=== PATIENT | female | born 2000 | race Two or more races ===

== ENCOUNTER 2024-10-04 18:21 | Emergency (ER) | payer SELFPAY ==
[2024-10-04 18:36] VITALS: BP 117/84; PULSE 117; RESP 18; TEMP 37.6; O2SAT 97
--- NOTE | 2024-10-04 18:38 | XR_ITS ---
Examination: PA lateral chest 2 views Technique: Upright PA lateral chest 2 views Exam date and time: October 04, 2024 at 1845 hrs. Indications: Flu symptoms 3 days. Findings: Normal heart size Lungs are clear. The osseous structures are intact Impression: No active disease
--- NOTE | 2024-10-04 18:39 | PD.EDRME ---
Rapid Medical Screening Exam RME Arrival date/time: 10/04/24 18:21 24 year old female present to ED for c/o 2 weeks flu like sx I have greeted and performed a focused initial assessment of this patient. A comprehensive ED assessment and evaluation of the patient, analysis of all test results, and completion of the medical decision making process will be conducted by additional ED providers. Chief Complaint: Flu Like Symptoms Time Seen by Provider: 10/04/24 18:25 Vital signs: Vital Signs Temperature 99.7 F 10/04/24 18:36 Pulse Rate 117 H 10/04/24 18:36 Respiratory Rate 18 10/04/24 18:36 Blood Pressure 117/84 10/04/24 18:36 Pulse Oximetry (%) 97 10/04/24 18:36 Oxygen Delivery Method Room Air 10/04/24 18:36
[2024-10-04 19:24] LABS: Strep A Rapid Positive (Negative)
[2024-10-04 19:39] LABS: Basophils % (Auto) 0 % (0-2.5); Eosinophils % (Auto) 0 % (0-10); Hematocrit 37.3 % (36.0-46.0); Hemoglobin 12.5 g/dL (12.0-16.0); Immature Granulocytes % (Auto) 1 % (0-0); Immature Granulocytes Auto 0.13 Thou/mm3 (0.00-0.00); Lymphocytes # (Auto) 1.1 Thou/mm3 (1.0-4.8); Lymphocytes % (Auto) 7 % (10-50); Mean Corpuscular HGB Conc 33.5 g/dl (31.0-37.0); Mean Corpuscular Hemoglobin 27.7 pg (25.0-35.0); Mean Corpuscular Volume 83 fL (80-100); Monocytes # (Auto) 0.9 Thou/mm3 (0.0-0.8); Monocytes % (Auto) 5 % (0-12); Neutrophils # (Auto) 14.5 Thou/mm3 (1.8-7.7); Neutrophils % (Auto) 87 % (37-80); Nucleated Red Blood Cell % 0 /100 WBC (0); Platelet Count 232 Thou/mm3 (140-440); Red Blood Count 4.51 Miln/mm3 (4.00-5.20); White Blood Count 16.7 Thou/mm3 (3.6-11.0)
[2024-10-04 19:47] LABS: Alanine Aminotransferase 22 U/L (10-49); Albumin, Serum 5.1 gm/dL (3.5-5.0); Albumin/Globulin Ratio 1.5 (1.2-2.2); Alkaline Phosphatase 84 U/L (46-116); Anion Gap 9 (7-16); Aspartate Amino Transferase 21 U/L (0-34); BUN/Creatinine Ratio 17 Ratio (12-20); Bilirubin,Total 0.6 mg/dL (0.3-1.2); Blood Urea Nitrogen 12 mg/dL (9-23); Calcium 9.7 mg/dL (8.3-10.6); Calcium (Corrected) 9.7 mg/dL (8.5-10.1); Carbon Dioxide 27.4 mMol/L (20.0-31.0); Chloride 101 mMol/L (98-107); Creatinine (Component) 0.7 mg/dL (0.6-1.3); Globulin 3.3 gm/dL (2.3-3.5); Glucose 92 mg/dL (74-106); Osmolality,Calculated 273 (275-295); Potassium 3.9 mMol/L (3.4-5.1); Sodium 137 mMol/L (136-145); Total Protein 8.4 gm/dL (5.7-8.2); eGFR > 60 See Note
[2024-10-04 19:51] LABS: HCG,Qualitative Serum Negative
[2024-10-04 20:27] LABS: Collection Type, Urine Voided; RBC,Urine 0 /hpf (0-3)
[2024-10-04 20:48] LABS: Bacteria,Urine Rare; Bilirubin,Urine Negative (Negative); Blood,Urine Negative (Negative); Clarity,Urine Clear (Clear/Hazy); Color,Urine Yellow (Lt Yel-Yel); Glucose, Urine Negative (Negative); Ketones,Urine 1+ (Negative); Leukocyte Esterase,Urine Positive (Negative); Nitrite,Urine Negative (Negative); PH,Urine 6.5 (5.0-7.0); Protein,Urine Trace (Neg - Trace); Specific Gravity,Urine 1.033 (1.001-1.035); Squamous Epithelial Cell,Urine 12 /hpf (0-5); Urobilinogen,Urine Negative mg/dL (0.0-1.0); WBC,Urine 3 /hpf (0-5)
[2024-10-04] MEDS: AMOXICILLIN 250 MG CAPSULE 500 MG PO (20:52)
[2024-10-04] MEDS: SODIUM CHLORIDE 0.9% 1000 ML 1,000 ML 999 ML IV (20:56)
[2024-10-04] MEDS: KETOROLAC INJ 30 MG/ML VIAL IVP (20:56)
[2024-10-04] MEDS: ACETAMINOPHEN w/COD 300-30 TABLET 1 TAB PO (21:38)
--- NOTE | 2024-10-04 21:44 | PD.EDURI ---
Upper Respiratory Inf. RME/HPI General Chief Complaint: Flu Like Symptoms Stated Complaint: FEVER, EAR PAIN Time Seen by Provider: 10/04/24 18:25 Arrival date/time: 10/04/24 18:21 24 year old female present to emergency room with c/o of intermittent URI sx for 2 weeks. SEVERITY: Symptoms are described as being severe with limitations on activities of daily living CONTEXT: The patient is unable to identify any inciting events. DURATION/TIMING: The symptoms started approximately 14 ago and have been constant since and have been progressive getting worse. ASSOCIATED SYMPTOMS: fever, chills, bodyaches, cough, sore throat MODIFYING FACTORS: The patient is unable to identify any alleviating or aggravating symptoms. PERTINENT ROS: no pleuritic pain, no ripping or tearing sensations, denies any lower extremity edema and no unilateral swelling, no chest pain/shortness of breath no nausea,vomiting, diarrhea, no dizziness no rash no loc/syncope episode no abd/back pain no dsyuria,urgency,frequency REVIEW OF SYSTEMS: See History of Present Illness - with the exception of those mentioned in the history of present illness, all other systems reviewed and reported as negative GENERAL: In general the patient is awake, interactive, in an emergency department gurney. HEAD/EYES/EARS/NOSE/THROAT: normo-cephalic, atraumatic, mucus membranes are moist, anicteric, palpebral conjunctiva is pink, trachea is midline. CARDIOVASCULAR: regular rate and regular rhythm, no murmurs, heart sounds are not distant, strong pulses in all four extremities that are equal and symmetric bilateral upper and lower extremities, normal capillary refill. CHEST/PULMONARY: normal chest rise and fall, good air movement, clear to auscultation bilaterally, normal inspiratory to expiratory ratios without evidence of respiratory distress. NECK: No midline/Paraspinal tenderness, no step off ROM/Strenght intact No Kernig and bruzinski sign. No trauma ABDOMEN: soft, not tender, no masses appreciated BACK: normal range of motion without pain. NEUROLOGICAL: cranio-facial features are symmetric, moves all four extremities equally without obvious limitations or weakness. EXTREMITY: no tenderness to palpation over the long bones or large joints of the bilateral upper and lower extremities, no joint swelling, no joint erythema, no signs of trauma, no unilateral leg swelling and no peripheral edema. SKIN: warm, dry, well-perfused, no jaundice, no rash, no telangiectasias or petechia. PSYCH: calm, cooperative, no evidence of psychosis or agitation RME / HPI RME / HPI Narrative: 10/04/24 18:21 24 year old female present to ED for c/o 2 weeks flu like sx I have greeted and performed a focused initial assessment of this patient. A comprehensive ED assessment and evaluation of the patient, analysis of all test results, and completion of the medical decision making process will be conducted by additional ED providers. Related Data Previous Rx's ?Medication ?Instructions ?Recorded penicillin V potassium 500 mg 500 mg PO TID #30 tabs 07/21/13 tablet acetaminophen 300 mg-codeine 15 mg 1 tab PO BID PRN pain #14 tabs 10/04/24 tablet amoxicillin 500 mg capsule 500 mg PO Q12H #20 caps 10/04/24 ibuprofen 800 mg tablet (IBU) 800 mg PO TID PRN fever #30 tabs 10/04/24 methylprednisolone 4 mg tablets in 4 mg PO .as directed #21 tabs 10/04/24 a dose pack (Medrol (Osmany)) Allergies Allergy/AdvReac Type Severity Reaction Status Date / Time NKA* Allergy Uncoded 10/04/24 18:25 Course Course Course Narrative: Patient presenting with sore throat consistent with bacterial pharyngitis.? ? Rapid strep was obtained and was positive.? The patient did not have trismus, hot potato voice, uvula deviation, unilateral tonsillar swelling, toxic appearance, drooling or pain with movement of the trachea to suggest peritonsillar abscess or epiglottitis.? No evidence of other bacterial infections including peritonsillar abscess, retropharyngeal abscess, epiglottitis.? Prescription for amoxicillin provided. Patient advised to continue ibuprofen and Tylenol at home. Patient is to followup with primary physician if has continued symptoms.? covid/flu negative cxr: nad cbc: 16k? cmp no acute findings hcg: negative? Plan:? Discharge from ED Prescribed amoxacillin 500mg bid x10d, medro dose osmany tylenol #3 for break through pain? and instructed Pt to complete entire Ab course.? Patient will be contagious for first?hr while on Ab regimen. Advised Pt on supportive therapies, including using a cool-mist vaporizer/humidifer/steam from hot showers, limit talking, OTC throat lozenges and mouthwashes qd, gargling w/ warm saltwater, advancement of fluids as tolerated, nasal saline sprays, rest, OTC acetaminophen or ibuprofen as directed prn for pain control, frequent handwashing, and boiling/disposing of contaminated toothbrushes.? Instructed Pt to f/up w/ PCP or ETC should Sx worsen or not improve.? Quality Measures none Orders Category Date Time Status Bedside COVID-19 Antigen Test NOW Care 10/04/24 18:38 Completed Bedside Influenza A&B Antigen Test NOW Care 10/04/24 18:38 Completed XR chest 2V Stat Exams 10/04/24 18:38 Completed CBC Stat Lab 10/04/24 19:11 Completed CMP [Comprehensive Metabolic Panel] Stat Lab 10/04/24 19:11 Completed HCG,Qualitative Serum Stat Lab 10/04/24 19:11 Completed Trinity Screen Stat Lab 10/04/24 19:11 Stop Req Strep A Rapid Stat Lab 10/04/24 18:42 Completed UA [Urinalysis] Stat Lab 10/04/24 20:17 Completed ACETAMINOPHEN w/COD 300-30 [Tylenol w/Cod #3] Med 10/04/24 21:32 Discontinued 1 tab PO X1 ONE Amoxicillin Cap [Amoxil Cap] Med 10/04/24 20:44 Discontinued 500 mg PO X1 ONE Ketorolac Inj [Toradol Inj] Med 10/04/24 20:48 Discontinued 30 mg IVP X1 ONE MethylPREDNISolone. [SoluMEDROL Inj] Med 10/04/24 20:44 Discontinued 40 mg IVP X1 ONE Sodium Chloride 0.9% 1000 ml [Ns] 1,000 ml Med 10/04/24 19:56 Discontinued IV 999 mls/hr Vital Signs Vital signs: Vital Signs Temperature 99.7 F 10/04/24 18:36 Pulse Rate 117 H 10/04/24 18:36 Respiratory Rate 18 10/04/24 18:36 Blood Pressure 117/84 10/04/24 18:36 Pulse Oximetry (%) 97 10/04/24 18:36 Oxygen Delivery Method Room Air 10/04/24 18:36 Upper Respiratory Infection Patient data External records reviewed:: None Clinical information provided by:: patient Social determinants that could affect healthcare access:: none Patient has the following chronic illnesses:: none How is presenting disease/condition affected by chronic disease/condition?: no chronic disease Evaluation data The following diagnostics were reviewed and interpreted by me:: lab results and radiology exam(s) Lab and/or radiology exams considered but not ordered:: none Interpretation Summary: covid/flu negative cxr: nad cbc: 16k? cmp no acute findings hcg: negative? urine no infection strep + Medications / Prescriptions Medications or Prescriptions considered but not ordered:: none Medication administrations:: Medication Administration History Discontinued Medications Acetaminophen/Codeine Phosphate (Acetaminophen W/Cod 300-30 Tablet) 1 tab PO X1 ONE Stop: 10/04/24 21:33 Last Admin: 10/04/24 21:38 Dose: 1 tab Documented By: MARGE Amoxicillin (Amoxicillin 250 Mg Capsule) 500 mg PO X1 ONE Stop: 10/04/24 20:45 Last Admin: 10/04/24 20:52 Dose: 500 mg Documented By: MARGE Sodium Chloride (Ns) 1,000 mls @ 999 mls/hr IV .Q1H1M ONE Stop: 10/04/24 20:56 Last Admin: 10/04/24 20:56 Dose: 999 mls/hr Documented By: ANUSHKA Ketorolac Tromethamine (Ketorolac Inj 30 Mg/Ml Vial) 30 mg IVP X1 ONE Stop: 10/04/24 20:49 Last Admin: 10/04/24 20:56 Dose: 30 mg Documented By: DB Methylprednisolone Sodium Succinate (Methylprednisolone Sod Succ 40 Mg Vial) 40 mg IVP X1 ONE Stop: 10/04/24 20:45 Last Admin: 10/04/24 20:56 Dose: 40 mg Documented By: DB as state above Consultations Consultation(s) initiated? (list below): No Diagnosis Upper Respiratory Differential Diagnosis: upper respiratory infection, otitis media, sinusitis, viral infection, bronchitis, influenza, pharyngitis and other (strep, anemia, ) Most likely diagnosis given after review of the tests above:: strep Admission Indicated Admission indicated?: not indicated Admission Request Was there a request for admission?: No Disposition Plan Disposition Plan: Discharge Discharge Attestation Discharge Attestation: The patient and all family members were given an opportunity to ask questions and understood the discharge instructions. Discharge instructions specifically effects, indications for sooner follow up or return to the emergency department, and the expected course of current diagnosis. Patient condition: Stable Discharge Plan Plan Patient Disposition: HOME (Self Care) Health Concerns: Follow with PMD as directed Take tylenol or motrin as need Return to ED if sx worsen Prescriptions/Referrals Prescriptions/Med Rec: New amoxicillin 500 mg capsule 500 mg PO Q12H Qty: 20 0RF methylprednisolone [Medrol (Osmany)] 4 mg tablets,dose pack 4 mg PO .as directed Qty: 21 0RF ibuprofen [IBU] 800 mg tablet 800 mg PO TID PRN (Reason: fever) Qty: 30 0RF acetaminophen-codeine 300-15 mg tablet 1 tab PO BID PRN (Reason: pain) Qty: 14 0RF No Action penicillin V potassium 500 MG tablet 500 mg PO TID Qty: 30 0RF Referrals: No Primary/Family,Physician [Primary Care Provider] - In 1 week Problem List Clinical Impression: Streptococcal sore throat Patient/Caregiver Discharge Instructions Education Materials: ED Pharyngitis, Strep (Confirmed) Print Language: Latvian Stand Alone Forms: Holli Award Info., Work/School Release, Patient Portal Info Letter
[2024-10-04 22:13] VITALS: BP 122/78; PULSE 89; RESP 16; TEMP 36.6; O2SAT 99
[2024-10-05 04:49] LABS: Mono Screen Negative (Negative)
== END 2024-10-04 22:14 | disposition home or self-care (01) ==
PROVIDERS: Physician Assistant; Emergency Provider Emergency Medicine
DX: J02.0 Streptococcal pharyngitis (principal)
CPT/HCPCS: 36415; 71046; 80053; 81001; 83605; 84703; 85025; 86308; 87040; 87651; 96374; 96375; 99284; J1885; J2919; J7030; A9270

== ENCOUNTER 2025-04-24 16:49 | Observation (INO) | payer MEDICAID, SELFPAY ==
[2025-04-24 17:02] VITALS: BP 120/74; PULSE 108; RESP 16; RESP 97; TEMP 37.3; O2SAT 97; BMI 29.7
[2025-04-24 17:03] VITALS: BP 120/74; PULSE 108
== END 2025-04-24 17:39 | disposition home or self-care (01) ==
PROVIDERS: Admitting Provider Obstetrics & Gynecology; Visit Provider Obstetrics & Gynecology
DX: O46.92 Antepartum hemorrhage, unspecified, second trimester (principal); Z3A.26 26 weeks gestation of pregnancy
CPT/HCPCS: 59025; 59899